=== PATIENT | female | born 1960 | race Caucasian/White ===

== ENCOUNTER → 2016-08-04 | Outpatient (CLI) | payer OTHER ==
[~2016-08-04] MED LIST: ATELVIA35 MG PO; LOPID600 MG PO; METOPROLOL TART25 MG PO; PREMARIN0.3 MG PO
--- NOTE | ~2016-08-04 | MY11 ---
[facility] A Service of [facility] RADIOLOGY TEXT RESULTS PATIENT: PEGGY MARTIN LOCATION: [facility] : 58 UNIT #: [id number] AGE: [address]: Lashay Herny [employer] SEX: F ORDER DR: [id number] [place] [id number] O MR#: [id number] Acc #: [id number] NAME: PEGGY MARTIN : 1960 SEX: F STUDY DATE/TIME: 08/04/2016 9:03 UNIT: [facility] ROOM: STUDY DESCRIPTION: MY Mammogram Screening [facility] [place] Attending Physician: Lashay Henry A.P.R.N. Referring Physician: Lashay Henry A.P.R.N. Ordering Physician: Lashay Henry A.P.R.N. Primary Care Physician: Lashay Henry A.P.R.N. MEDICAL IMAGING REPORT This report is preliminary unless electronic signature is present. EXAM Digital screening mammogram 08/04/2016 HISTORY 55-year-old woman, positive family history, cousin age 50. Annual screen. COMPARISON STUDIES Comparison mammograms date to 11/09/2004 with most recent 09/11/2011 FINDINGS Digital imaging of each breast was completed utilizing screening protocol. Review includes FDA-approved CAD device. Breast parenchyma is very dense with residual fibroglandular opacities stable in each breast. Subareolar duct prominence is noted. Mild parenchymal nodularity is present. I see no interval occurring mass. There are no suspicious microcalcifications and no architectural deformity. IMPRESSION Benign mammogram. Stable dense breast parenchyma. Annual screening recommended. BIRADS II Patients over the age of 40 are entered into a reminder system with target due date for the next mammogram. A result letter will also be sent to the patient. BIRADS: 2 - Benign finding Dictated by... Parker Marc M.D. THIS IS AN ELECTRONICALLY VERIFIED REPORT Parker Marc M.D. at 08/04/2016 3:51 PM CARMELINAB/ayesha [facility] A Service of [facility] RADIOLOGY TEXT RESULTS PATIENT: PEGGY MARTIN LOCATION: [facility] #: [id number] : 58 UNIT #: [id number] AGE: [address]: Lashay Henry SEX: F ORDER DR: TD: 08/04/2016 14:56 JOB #: [id number] MEDICAL IMAGING REPORT Page 1 of 1
== END | disposition home or self-care (01) ==
LOC: SMAM 08:21
DX: Z12.31 Encounter for screening mammogram for malignant neoplasm of breast (principal); Z80.3 Family history of malignant neoplasm of breast
CPT/HCPCS: G0202